=== PATIENT | male | born 1980 | race African-American/Black ===

== ENCOUNTER 2019-02-01 08:04 | Inpatient (IN) | payer OTHER, MEDICARE ==
[~2019-02-01] VITALS: Ht 195.6 cm; Wt 92.1 kg
[2019-02-01] MEDS ORDERED: MORPHINE SULFATE 4 MG/ML CPJ (NOT FOR IM USE) IV STA (08:24)
[2019-02-01] MEDS ORDERED: ONDANSETRON HCL 4MG/2ML INJ IV STA (08:24)
[2019-02-01 08:36] LABS: BASOPHILS % 0.3 % (0.0-2.0); EOSINOPHILS % 0.1 % (0.0-5.0); HEMATOCRIT. 44.3 % (42.0-52.0); HEMOGLOBIN. 13.9 g/dL (14.0-18.0); LYMPHOCYTES % 23.7 % (20.0-50.0); MEAN CORPUSCULAR HEMOGLOBIN 21.6 pg (28.0-32.0); MEAN CORPUSCULAR VOLUME 68.8 fL (80.0-94.0); MEAN PLATELET VOLUME 10.6 fl (7.4-10.4); MONOCYTES % 9.7 % (2.0-8.0); NEUTROPHILS % 66.2 % (40.0-76.0); PLATELET 191 x1000/uL (130-400); RED BLOOD CELL COUNT 6.44 mill/uL (4.7-6.1); RED CELL DISTRIBUTION WIDTH 15.9 % (11.6-14.6)
[2019-02-01 08:42] LABS: CHLORIDE 105 mEq/L (98-107)
[2019-02-01 08:45] LABS: INR 1.1; PROTHROMBIN TIME 10.9 sec (9.6-11.0)
[2019-02-01 09:42] LABS: CLARITY URINE CLEAR (CLEAR); COLOR URINE YELLOW (YELLOW); KETONES URINE NEGATIVE (NEGATIVE); LEUKOCYTE ESTERASE URINE NEGATIVE (NEGATIVE); NITRITE URINE NEGATIVE (NEGATIVE); OCCULT BLOOD URINE NEGATIVE (NEGATIVE); PH URINE 5.5 (4.5-8.0); PROTEIN URINE 1+ (NEGATIVE); UROBILINOGEN URINE 0.2 E.U./dL (0.2-1.0)
[2019-02-01] MEDS ORDERED: IOHEXOL-300 100 ML BOTTLE ONE (11:00)
[2019-02-01 13:32] LABS: PLATELET ESTIMATE NORMAL
[2019-02-01 18:57] VITALS: BP 126/83
[2019-02-01 20:00] VITALS: BP 124/93
[2019-02-01] MEDS ORDERED: SODIUM CHLORIDE 0.9% 1,000 ML IV SCH (20:06)
[2019-02-01] MEDS ORDERED: ONDANSETRON HCL 4MG/2ML INJ IV PRN (20:15)
[2019-02-01] MEDS ORDERED: MAGNESIUM/ALUMINUM HYDROXIDE/SIMETHICONE 30ML UDC PO PRN (20:15)
[2019-02-01] MEDS ORDERED: MORPHINE SULFATE 4 MG/ML CPJ (NOT FOR IM USE) IV PRN (20:15)
[2019-02-01] MEDS ORDERED: HYDROCODONE/ACETAMINOPHEN 10/325MG TABLET PO PRN (20:15)
[2019-02-01] MEDS ORDERED: DIPHENHYDRAMINE 50MG/ML VIAL IV PRN (20:15)
[2019-02-01] MEDS ORDERED: ACETAMINOPHEN 325MG TABLET PO PRN (20:15)
[2019-02-01 20:44] VITALS: BP 124/93
[2019-02-01] MEDS ORDERED: SODIUM CHLORIDE 0.9% INJ 3ML FLUSH IVF SCH (22:00)
== END 2019-02-01 21:57 | disposition short-term general hospital (02) | DRG 693 ==
LOC: ER 08:04 → 7WST 12:24 → ENRESERV 15:40
PROVIDERS: ADMIT Internal Medicine; ATTEND Internal Medicine
DX: N13.30 Unspecified hydronephrosis (principal); K66.1 Hemoperitoneum; Z82.49 Family history of ischemic heart disease and other diseases of the circulatory system
CPT/HCPCS: 36415; 74178; 76770; 81003; 96374; 99285; J2270; J2405; Q9967